=== PATIENT | female | born 1930 | race Caucasian/White ===

== ENCOUNTER 2017-07-12 17:02 | Inpatient (IN) | payer OTHER, BC | END 2017-07-15 15:29 | DRG 536 | LOC: ER 17:02 → EROBS 20:11 → 4N 21:42 | DX: S32.591A Other specified fracture of right pubis, initial encounter for closed fracture (principal); I10 Essential (primary) hypertension; G89.29 Other chronic pain; M54.9 Dorsalgia, unspecified; R54 Age-related physical debility; W06.XXXA Fall from bed, initial encounter; Y93.89 Activity, other specified; Y92.098 Other place in other non-institutional residence as the place of occurrence of the external cause; Z79.899 Other long term (current) drug therapy; Y99.8 Other external cause status ==

== ENCOUNTER 2017-11-28 12:53 | Inpatient (IN) | payer OTHER, BC ==
[~2017-11-28] VITALS: Ht 152.4 cm; Wt 63.5 kg
--- NOTE | ~2017-11-28 | EKG ---
[address] [address] ELECTROCARDIOGRAM REPORT Name: REKHA CHEN LARA Room #: 431-P ADM IN M.R.#: [id number] Admission: 11/28/17 Attend Phys: Guillaume Penaloza MD Discharge: Date of : [birth year] Report #: [id number] THIS REPORT FOR: //name// [facility] ED Test Date: 2017-11-28 Test Time: 13:29:22 Pat Name: REKHA CHEN Department: Room: 431 Gender: F Physiotherapy Practice Manager: : 1930 Requested By: Vickie White Order Number: [id number] MD: Jerry Farley Measurements Intervals [place] Rate: 72 P: 8 [place]: 198 QRS: -18 QRSD: 77 T: 24 QT: 419 QTc: 459 Interpretive Statements Sinus rhythm Left ventricular hypertrophy Inferior infarct, old Baseline wander in lead(s) V5 Compared to ECG 08/10/2017 16:49:45 Left ventricular hypertrophy now present Myocardial infarct finding now present Electronically Signed On 11-28-2017 23:25:22 NEPHROLOGIST by Jerry Farley [email or web address] <ELECTRONICALLY SIGNED> By: Jerry Farley MD 11/28/17 2325 1329 1329 Jerry Farley MD /EPI
--- NOTE | ~2017-11-28 | H ---
[facility] [place] [address] HISTORY AND PHYSICAL Name: REKHA CHEN Room #: 431-P ADM IN M.R.#: [id number] Admission: 11/28/17 Attend Phys: Guillaume Penaloza MD Discharge: Date of : [birth year] Report #: [id number] THIS REPORT FOR: //name// CC: Guillaume Penaloza DATE OF SERVICE: 11/28/2017 CHIEF COMPLAINT: Weakness. HISTORY OF PRESENT ILLNESS: The patient is an 87-year-old female who was brought to the Emergency Room with a few day history of weakness and just generalized symptoms. She has complained of some headache and leg pain along with some crampy pain in the left upper abdomen or chest area. She denied any shortness of breath, direct chest pain or productive cough. She has had no fever or chills. She was hospitalized 4 months ago or longer for a pelvic fracture and then had a brief [facility] stay for rehabilitation. She has been home since and back to her usual self. Her noted that she had been sick on Tuesday with nonspecific symptoms and urged her to come to the hospital, but she declined. PAST MEDICAL HISTORY: Hypertension, pneumonia, chronic low back pain due to lumbar stenosis, pelvic fracture. PAST SURGICAL HISTORY: Cholecystectomy, left total knee replacement. SOCIAL HISTORY: Occasional alcohol use, but no chronic smoking. ALLERGIES: No known drug allergies. MEDICATIONS: Hydrocodone 10 mg, benazepril 20 mg, gabapentin 300 mg t.i.d., fluoxetine 20 mg twice a day and amlodipine 5 mg a day. REVIEW OF SYSTEMS: She denies headache, chest pain, shortness of breath, abdominal pain, nausea, vomiting, diarrhea, constipation. PHYSICAL EXAMINATION: VITAL SIGNS: Temperature 36.4, pulse 74, respirations 18, blood pressure 181/79, O2 sat 91% to 95% on room air. GENERAL: She is awake and alert, in no distress. HEAD AND NECK: Unremarkable. LUNGS: Clear. HEART: Regular. ABDOMEN: Soft, normoactive bowel sounds. EXTREMITIES: No edema. NEUROLOGIC: Motor strength 4/5 throughout. She is alert and oriented. [facility] [address] [place] [address] HISTORY AND PHYSICAL Name: REKHA CHEN [facility] Room #: 431-P [facility] IN M.R.#: [id number] Admission: 11/28/17 Attend Phys: Guillaume Penaloza MD Discharge: Date of : [birth year] Report #: [id number] LABORATORY DATA: Pertinent findings include calcium 11.7, potassium 3.2. ASSESSMENT: 1. Hypercalcemia. 2. Hypokalemia. 3. Generalized weakness due to the above. 4. Hypertension. 5. Chronic lumbar stenosis and chronic back pain. PLAN: The most significant change here is her elevated calcium, which is new since her admission in July. Additional lab studies have been obtained, and I have added IV fluids. She may need a dose of Zometa depending on followup lab studies. This could be the source of her acute symptoms. If ionized calcium and PTH abnormal and we get her improved, then we can continue workup as an outpatient. <ELECTRONICALLY SIGNED> By: Guillaume Penaloza MD 11/29/17 0936 1426 1500 Guillaume Penaloza MD /nt
--- NOTE | ~2017-11-28 | D ---
[facility] [place] [address] DISCHARGE SUMMARY Name: REKHA CHEN Room #: 431-P ADM IN M.R.#: [id number] Admission: 11/28/17 Attend Phys: Guillaume Penaloza MD Discharge: Date of : [birth year] Report #: [id number] THIS REPORT FOR: //name// CC: Guillaume Penaloza FINAL DIAGNOSES: 1. Hypercalcemia. 2. Hypertension. 3. Gait disturbance. HOSPITAL COURSE: The patient was admitted with generalized symptoms of fatigue, weakness, and diffuse pains. Pertinent findings included hypercalcemia with a calcium of 11.5. Repeated studies on several occasions showed levels varying from 9.4 to 11. Corrected for her low albumin, this gave her a calcium of approximately 12 or higher. Ionized calcium was just slightly elevated. PTH was slightly elevated at 75. Thyroid ultrasound was really inconclusive as far as parathyroid adenoma. Other home medications were continued. She continued to complain of diffuse bone pain. On the day of discharge, her calcium was 10.5 and again corrected placed this close to 11.5 to 12. At this point, I elected to give her 1 dose of Zometa 4 mg IV once. I talked to her about the findings and our plan will be to follow up as an outpatient with additional studies. PTH related hormone level will be drawn, but this may be several day result for any occult malignancy. She had multiple x-rays including the spine and chest with old compression fractures, but there was no report or evidence of suspicious bony lesions. A serum protein electrophoresis did not show a protein spike. PHYSICAL EXAMINATION ON THE DAY OF DISCHARGE: GENERAL: She was resting comfortably. VITAL SIGNS: Stable vital signs. LUNGS: Clear. HEART: Regular. ABDOMEN: Soft, normoactive bowel sounds. EXTREMITIES: No edema. DISPOSITION: She will be discharged to home with diet and activity as tolerated, Percocet [address] of hydrocodone. Follow up with me early next week for additional outpatient studies. <ELECTRONICALLY SIGNED> By: Guillaume Penaloza MD 12/02/17 1113 1008 1026 Guillaume Penaloza MD /nt
[~2017-11-28 12:53] MED LIST: ASPIR 8181 MG PO; AUGMENTIN 500-1 EACH PO; BENAZEPRIL HCL20 MG PO; HYDROCODONE-APA1 TA1 PO; IRON325 PO; MAXZIDE-25 MG1 EACH PO; NEURONTIN 300300 M1 PO; NORCO 10-325 T1 EACH PO; NORVASC5 MG PO; PROZAC20 MG PO; TRIAMTERENE/HCT1 CA1 PO; TYLENOL325 MG PO
[2017-11-28 12:58] VITALS: BP 181/79
[2017-11-28 13:38] LABS: ABSOLUTE NEUTROPHILS 7.2 thou/uL (1.4-8.2); BASOPHILS 0.4 % (0.0-2.0); EOSINOPHILS 0.3 % (0.0-3.0); HEMATOCRIT 47.2 % (37.0-47.0); LYMPHOCYTES 14.4 % (24.0-44.0); MCH 35.2 pg (26.0-34.0); MCV 103.4 fL (80.0-100.0); MONOCYTES 6.9 % (1.0-8.0); PLATELET COUNT 251 thou/uL (150-400); RBC 4.56 mil/uL (4.20-5.00); RDW 12.8 % (10.5-14.5); WBC 9.2 thou/uL (4.0-11.0)
[2017-11-28 13:46] LABS: ANION GAP 12 mmol/L (7-16); BUN 21 mg/dL (7-18); CALCIUM 11.7 mg/dL (8.5-10.1); CHLORIDE 102 mmol/L (98-107); CO2 26 mmol/L (21-32); GLUCOSE 146 mg/dL (74-106); POTASSIUM 3.2 mmol/L (3.5-5.1); SODIUM 140 mmol/L (136-145)
[2017-11-28 13:54] LABS: TROPONIN-I < 0.04 ng/mL (<0.06)
[2017-11-28 13:59] LABS: URINE BILIRUBIN NEGATIVE (Negative); URINE BLOOD NEGATIVE (Negative); URINE CLARITY CLEAR; URINE COLOR YELLOW; URINE GLUCOSE-RANDOM* NEGATIVE (Negative); URINE KETONES TRACE (Negative); URINE LEUKOCYTES NEGATIVE (Negative); URINE NITRITE NEGATIVE (Negative); URINE PROTEIN (DIPSTICK) 2+ (Negative); URINE SPECIFIC GRAVITY 1.025 (1.005-1.035); URINE UROBILINOGEN 0.2 E.U./dl (0.2-1.0)
[2017-11-28 14:10] LABS: DIRECT BILIRUBIN 0.2 mg/dL (<0.1-0.3)
[2017-11-28 14:11] LABS: BACTERIA 1-9 Few /HPF (None Seen); CASTS None Seen /LPF (None Seen); CRYSTALS None Seen /LPF (None Seen); SQUAMOUS 0-3 Few /LPF (0-3); URINE RBC 0-2 Rare /HPF (0-2); URINE WBC 6-15 Few /HPF (0-5)
[2017-11-28 15:49] LABS: CALCIUM 11.5 mg/dL (8.5-10.1); CREATININE 1.1 mg/dL (0.6-1.0); PHOSPHORUS 3.1 mg/dL (2.5-4.9)
[2017-11-28 17:20] VITALS: BP 178/75
[2017-11-28 20:51] VITALS: BP 135/53
[2017-11-29 04:49] VITALS: BP 137/72
[2017-11-29 07:06] LABS: HEMATOCRIT 39.1 % (37.0-47.0); MCHC 33.8 g/dL (28.0-37.0); MCV 103.4 fL (80.0-100.0); RBC 3.79 mil/uL (4.20-5.00); RDW 13.1 % (10.5-14.5); WBC 7.6 thou/uL (4.0-11.0)
[2017-11-29 07:07] LABS: HEMOGLOBIN 13.2 gm/dL (12.0-15.0)
[2017-11-29 07:18] LABS: ALBUMIN 3.1 g/dL (3.4-5.0); CALCIUM 10.4 mg/dL (8.5-10.1); POTASSIUM 3.6 mmol/L (3.5-5.1); TOTAL BILIRUBIN 0.7 mg/dL (<0.1-1.0); TOTAL PROTEIN 6.2 g/dL (6.4-8.2)
[2017-11-29 07:30] VITALS: BP 152/70
[2017-11-29 17:00] VITALS: BP 150/69
[2017-11-29 20:00] VITALS: BP 136/60
[2017-11-30 04:22] VITALS: BP 118/63
[2017-11-30 06:50] LABS: ALBUMIN 2.9 g/dL (3.4-5.0); CALCIUM 9.8 mg/dL (8.5-10.1); CREATININE 0.9 mg/dL (0.6-1.0); PHOSPHORUS 2.9 mg/dL (2.5-4.9); POTASSIUM 3.7 mmol/L (3.5-5.1)
[2017-11-30 08:02] VITALS: BP 139/62
[2017-11-30 10:10] LABS: GLOBULIN TOTAL 3.1 g/dL (2.2-3.9); M-SPIKE Not Observed g/dL (Not Observed)
[2017-11-30 14:35] VITALS: BP 145/64
[2017-11-30 20:29] VITALS: BP 159/67
[2017-12-01 03:26] VITALS: BP 104/46
[2017-12-01 06:19] LABS: CALCIUM 9.5 mg/dL (8.5-10.1); CREATININE 0.8 mg/dL (0.6-1.0); PHOSPHORUS 3.1 mg/dL (2.5-4.9); POTASSIUM 3.7 mmol/L (3.5-5.1)
[2017-12-01 08:00] VITALS: BP 159/72
[2017-12-01 16:36] VITALS: BP 149/72
[2017-12-01 19:51] VITALS: BP 157/85
[2017-12-02 05:12] VITALS: BP 150/60
[2017-12-02 05:41] LABS: CALCIUM 10.5 mg/dL (8.5-10.1); CREATININE 0.9 mg/dL (0.6-1.0); POTASSIUM 3.7 mmol/L (3.5-5.1)
[2017-12-02 09:20] VITALS: BP 138/57
[2017-12-02] MEDS ORDERED: PERCOCET PO (10:04)
[2017-12-02 10:58] VITALS: BP 138/57
== END 2017-12-02 15:03 | disposition home health service (06) | DRG 641 ==
LOC: ER 12:53 → 4E 14:07 → EROBS 14:07 → 4E 16:48 → ENTRNSPT 12-02 14:40 → EDTRNSPTSTS 12-02 14:42 → 4E 12-02 15:03
PROVIDERS: Emergency Medicine; Internal Medicine Geriatric Medicine
DX: E83.52 Hypercalcemia (principal); I10 Essential (primary) hypertension; R26.89 Other abnormalities of gait and mobility; G89.29 Other chronic pain; M54.5 Low back pain; E87.6 Hypokalemia; M48.061 Spinal stenosis, lumbar region without neurogenic claudication; Z90.49 Acquired absence of other specified parts of digestive tract; Z87.81 Personal history of (healed) traumatic fracture; Z79.899 Other long term (current) drug therapy; Z87.01 Personal history of pneumonia (recurrent); Z79.82 Long term (current) use of aspirin
CPT/HCPCS: 10183

== ENCOUNTER 2018-05-23 20:26 | Inpatient (IN) | payer OTHER, BC ==
[~2018-05-23] VITALS: Ht 152.4 cm; Wt 57.9 kg
--- NOTE | ~2018-05-23 | EKG ---
[place] [address] [facility] [employer] [place] [address] ELECTROCARDIOGRAM REPORT Name: REKHA CHEN LARA Room #: 208-P ADM IN M.R.#: [id number] Admission: 05/23/18 Attend Phys: Rocío Randle MD Discharge: Date of : [birth year] Report #: [id number] THIS REPORT FOR: //name// [facility] Test Date: 2018-05-25 Test Time: 06:37:21 Pat Name: REKHA CHEN Department: Room: 208 P Gender: F Client Technical Specialist: KRISHAN : 1930 Requested By: Dino Pyle Order Number: [id number] MD: Haider Spicer Measurements Intervals [place] Rate: 65 P: -2 [place]: 184 QRS: -18 QRSD: 81 T: 27 QT: 466 QTc: 485 Interpretive Statements Sinus rhythm Left ventricular hypertrophy Baseline wander in lead(s) II,III,aVF Compared to ECG 11/28/2017 13:29:22 QT interval has shortened Electronically Signed On 05-25-2018 8:46:12 CDT by Haider Spicer [email or web address] <ELECTRONICALLY SIGNED> By: Haider Spicer MD, [facility] 05/25/18 0846 0637 0637 Haider Spicer MD, [facility] /EPI
--- NOTE | ~2018-05-23 | HC ---
[facility] [place] [address] CONSULTATION Name: REKHA CHEN Room #: 208-P ADM IN M.R.#: [id number] Admission: 05/23/18 Attend Phys: Rocío Randle MD Discharge: Date of : [birth year] Report #: [id number] THIS REPORT FOR: //name// CC: Guillaume Randle DATE OF SERVICE: 05/24/2018 TYPE OF REPORT: Cardiology consultation. INDICATION: Chest pain. HISTORY OF PRESENT ILLNESS: This is a pleasant 87-year-old female with a history of hypertension and edema, presenting with chest discomfort. She describes a discomfort on the left sternal area, worse with palpation, deep inspiration and stretching of the arms. This pain has been persistent for the past 3 weeks. She denies any shortness of breath, lightheadedness, palpitations or congestion. There is no history of fever or chills. PAST MEDICAL HISTORY: Hypertension, edema, left total right knee replacement, history of cholecystectomy and pneumonia. ALLERGIES: None. MEDICATIONS: At home include Lotensin 20 mg daily, aspirin once a day, Neurontin and Maxzide one tablet a day. SOCIAL HISTORY: Denies tobacco use. Lives with her . FAMILY HISTORY: Negative for premature CAD. REVIEW OF SYSTEMS: A full 10-point review of systems performed. Only the pertinent positives and negatives are described in the HPI. PHYSICAL EXAMINATION: VITAL SIGNS: Blood pressure is 130/80 and heart rate is 80 beats per minute. GENERAL APPEARANCE: An elderly appearing female, in no acute respiratory distress. HEAD AND EYES: Normocephalic. Sclerae are anicteric. ENT: Oral mucosa moist. NECK: Supple. LUNGS: Clear to auscultation. CARDIAC: Regular rate and rhythm. S1 and S2 positive. ABDOMEN: Soft and nontender. CHEST: Reproducible pain with palpation in the left sternal area. [facility] [address] [place] [address] CONSULTATION Name: REKHA CHEN Room #: 208-P ADM IN .R.#: [id number] Admission: 05/23/18 Attend Phys: Rocío Randle MD Discharge: Date of : [birth year] Report #: [id number] EXTREMITIES: No cyanosis. Trace edema. RADIOLOGICAL DATA: ECG reveals sinus rhythm, nonspecific ST-segment abnormalities and left axis deviation. LABORATORY VALUES: Peak troponin is 0.49 and the second one is 0.26. White count 11.1 and hemoglobin 15.1. Sodium is 135, potassium is 2.8 and creatinine is 1.1. ASSESSMENT AND PLAN: 1. Chest pain syndrome. Her symptoms and findings are consistent with costochondritis or some other musculoskeletal etiology. It is reproducible with palpation over the area as well as stretching of her arms. Recommend treatment with anti-inflammatory agents. 2. Minimal troponin elevation, in the indeterminate range, the significance is unclear. We will need an echo and an ischemic evaluation. 3. Hypertension, continue with medications. 4. Edema, hold diuretic therapy in view of a low potassium. Thank you for allowing me to participate in the care of your patient. <ELECTRONICALLY SIGNED> By: Dino Pyle MD 05/25/18 0823 0923 1041 Dino Pyle MD /nt
--- NOTE | ~2018-05-23 | H ---
[facility] [place] [address] HISTORY AND PHYSICAL Name: REKHA CHEN Room #: 208-P ADM IN M.R.#: [id number] Admission: 05/23/18 Attend Phys: Rocío Randle MD Discharge: Date of : [birth year] Report #: [id number] THIS REPORT FOR: //name// CC: Guillaume Randle DATE OF SERVICE: 05/24/2018 CHIEF COMPLAINT: Chest pain. HISTORY OF PRESENT ILLNESS: The patient is an 87-year-old female who presented to the Emergency Room with a 1-day history of chest pain. She described chronic pain for which she uses hydrocodone, but this generally involves her low back, her left hip but on occasion, she has had pain across her chest. She said the pain hurt when she coughed or took a deep breath. It seemed to intensify yesterday and was more severe than baseline and therefore she came to the Emergency Room last night. Her troponin was slightly elevated and so overnight she has been treated with IV nitroglycerin and heparin infusion. She had a hospitalization, I believe, at [facility] 6 months ago for a similar story, do not recall all the details, but she does not remember any mention of cardiac disease in previous workup. She also was hospitalized here in 2017 with generalized pain and at that point was felt to be related to hypercalcemia and maybe some mild hyperparathyroidism. I believe studies at that time were unremarkable including a protein electrophoresis and x-rays. PAST MEDICAL HISTORY: Hypertension, degenerative lumbar disk disease, insomnia, hypercalcemia, history of herpes zoster with postherpetic neuralgia, carotid stenosis, pelvic fracture in 2017. She had an admission for pneumonia in 2017. PAST SURGICAL HISTORY: Cholecystectomy, left total hip replacement. FAMILY HISTORY: Noncontributory. SOCIAL HISTORY: She is and lives with her . No chronic alcohol or tobacco use. ALLERGIES: None. MEDICATIONS: Hydrocodone 10 mg q.4 hours p.r.n. pain, benazepril 20 mg, gabapentin 300 mg t.i.d., Prozac 20 mg a day and she takes some nutritional supplements. REVIEW OF SYSTEMS: She denies headache, shortness of breath, productive cough, fever, chills, nausea, vomiting, diaphoresis, dysuria, myalgias, arthralgias, syncope, constipation, diarrhea. [facility] [address] [place] [address] HISTORY AND PHYSICAL Name: REKHA CHEN LARA Room #: 208-P [facility] IN .R.#: [id number] Admission: 05/23/18 Attend Phys: Rocío Randle MD Discharge: Date of : [birth year] Report #: [id number] PHYSICAL EXAMINATION: VITAL SIGNS: Temperature 36.4, pulse 80, respiration 18, blood pressure 134/86, O2 sat 91-100% on room air. GENERAL: She is awake and alert, resting in bed in no distress. HEAD AND NECK: Unremarkable. LUNGS: Clear. HEART: Regular. ABDOMEN: Soft, normoactive bowel sounds. EXTREMITIES: No edema. NEUROLOGIC: Motor strength, 4/5 throughout. LABORATORY DATA: Her troponin on admission was 0.4, now 0.2. She is receiving heparin with PTT of 40. CBC, chemistry were unremarkable other than a potassium of 2.8, creatinine 1.1, calcium of 10.2. BNP was 2700. Chest x-ray was negative. ASSESSMENT: 1. Chest pain. 2. Hypertension. 3. Hypokalemia. 4. Hypercalcemia. 5. Degenerative lumbar disk disease. PLAN: At this point, I have asked Cardiology to see her and consider cardiac source of her symptoms. However, if this workup is unremarkable, consider musculoskeletal source. Her calcium is only mildly elevated and this is actually much lower than previous admission, so we will just monitor this for now. I believe she had received a dose of Zometa in the past for hypercalcemia. <ELECTRONICALLY SIGNED> By: Guillaume Penaloza MD 05/25/18 0822 0858 0930 Guillaume Penaloza MD /nt
--- NOTE | ~2018-05-23 | EKG ---
[place] [address] [facility] [place] [address] ELECTROCARDIOGRAM REPORT Name: REKHA CHEN LARA Room #: 208-P ADM IN M.R.#: [id number] Admission: 05/23/18 Attend Phys: Rocío Randle MD Discharge: Date of : [birth year] Report #: [id number] THIS REPORT FOR: //name// [facility] ED Test Date: 2018-05-23 Test Time: 20:26:27 Pat Name: REKHA CHEN Department: Room: Gender: F Spreader Operator Automatic: JAZZY : 1930 Requested By: Juan R Sheehan Order Number: [id number] MD: Haider Spicer Measurements Intervals [place] Rate: 77 P: 22 [place]: 178 QRS: -3 QRSD: 80 T: 59 QT: 446 QTc: 505 Interpretive Statements Sinus rhythm Prolonged QT interval Compared to ECG 11/28/2017 13:29:22 Prolonged QT interval now present Electronically Signed On 05-25-2018 8:33:23 CDT by Haider Spicer [email or web address] <ELECTRONICALLY SIGNED> By: Haider Spicer MD, [facility] 05/25/18 0833 25 25 Haider Spicer MD, [facility] /EPI
--- NOTE | ~2018-05-23 | D ---
[facility] [place] [address] DISCHARGE SUMMARY Name: REKHA CHEN Room #: 208-P [facility] IN M.R.#: [id number] Admission: 05/23/18 Attend Phys: Rocío Randle MD Discharge: 05/26/18 Date of : [birth year] Report #: [id number] THIS REPORT FOR: //name// CC: Guillaume Randle FINAL DIAGNOSES: 1. Costochondritis. 2. Noncardiac chest pain. 3. Hypertension. 4. Edema. 5. 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 HOSPITAL COURSE: The patient was admitted with chest pain. Cardiac enzymes are only just a touch elevated in the indeterminate range. Dr. Pyle saw her in consultation. Echocardiogram was unremarkable. We did not feel that this is an acute cardiac syndrome or evidence of cardiac disease. Therefore, she was treated conservatively. Nonsteroidals seemed to help her left chest wall pain. She had reproducible pain over the left-sided ribs. There was a soft, movable, nontender lipoma in the mid upper left back, which was chronic. CT of the chest was unremarkable. PHYSICAL EXAMINATION: GENERAL: On the day of discharge, she is awake and alert, in no distress. VITAL SIGNS: Stable vital signs, off her benazepril. LUNGS: Clear. HEART: Regular. ABDOMEN: Soft, normoactive bowel sounds. EXTREMITIES: No edema. DISPOSITION: To be discharged to [facility] unit for additional rehabilitation. I will follow her stay there. I have signed her transfer medication list, which will include hydrocodone, ibuprofen and Lidoderm patch for her left chest wall pain. <ELECTRONICALLY SIGNED> By: Guillaume Penaloza MD 06/01/18 1031 1154 1235 Guillaume Penaloza MD /nt
--- NOTE | ~2018-05-23 | 2DMMODE ---
[facility] [address] [place] [address] 2 D/M-MODE ECHOCARDIOGRAM Name: KARYAIDERoseyREKHA LARA Room #: 208-P ADM IN M.R.#: [id number] Admission: 05/23/18 Attend Phys: Sienna Lee Discharge: Date of : [birth year] Date of Service: 05/25/18 1228 Report #: [id number] THIS REPORT FOR: //name// APPROVED REPORT Study performed: 05/25/2018 09:53:04 EXAM: Comprehensive 2D, Doppler, and color-flow Echocardiogram Patient Location: Bedside Room #: 208 Status: routine BSA: 1.53 HR: 74 bpm BP: 91/41 mmHg Other Information Study Quality: Adequate Indications Chest Pain Hypertension/HDD 2D Dimensions RVDd: 30.76 mm LVEF(%): 62.56 (>50%) IVSd: 10.82 (7-11mm) LVOT Diam: 16.55 (18-24mm) LVDd: 29.24 mm PWd: 11.71 (7-11mm) LVDs: 19.74 (25-40mm) Aortic Root: 20.64 mm IVC: 15.00 mm Iniguez's LVEF: 62.56 % Volumes Left Atrial Volume (Systole) Single Plane 4CH: 80.04 mL Single Plane 2CH: 69.63 mL LA ESV Index: 49.00 mL/m2 Aortic Valve AoV Peak Rigoberto.: 1.83 m/s AO Peak Gr.: 13.34 mmHg LVOT Max P.93 mmHg LVOT Max V: 1.58 m/s MALENA Vmax: 1.86 cm2 Mitral Valve E/A Ratio: 0.6 MV Decel. Time: 395.23 ms [facility] [address] [place] [address] 2 D/M-MODE ECHOCARDIOGRAM Name: REKHA CHEN [facility] Room #: 208-P [facility] IN .R.#: [id number] Admission: 05/23/18 Attend Phys: Sienna Lee Discharge: Date of : [birth year] Date of Service: 05/25/18 1228 Report #: [id number] MV E Max Rigoberto.: 0.64 m/s MV A Rigoberto.: 1.06 m/s MV PHT: 114.62 ms IVRT: 110.73 ms Pulmonary Valve PV Peak Rigoberto.: 1.37 m/s PV Peak Gr.: 7.50 mmHg Tricuspid Valve TR Peak Rigoberto.: 2.99 m/s RAP Estimate: 5.00 mmHg TR Peak Gr.: 35.70 mmHg PA Pressure: 41.00 mmHg Left Ventricle Left ventricular cavity is small. There is normal LV segmental wall motion. There is normal left ventricular wall thickness. Left ventricular systolic function is hyperdynamic. Mild-moderate intracavitary gradient (mean 21mmHg), probably related to the hyperdynamic LV function LVEF is 70-75%. Grade I - abnormal relaxation pattern. Right Ventricle The right ventricle is normal size. The right ventricular systolic function is normal. Atria Left atrium is severely dilated. The right atrium size is normal. Aortic Valve Mild aortic valve sclerosis. No aortic regurgitation is present. There is no aortic valvular stenosis. Mitral Valve Moderate mitral annular calcification. Mild mitral regurgitation. No evidence of mitral valve stenosis. Tricuspid Valve The tricuspid valve is normal in structure. Mild tricuspid regurgitation. PAP is estimated at 40 mmHg. Pulmonic Valve Pulmonic valve is not well visualized. Great Vessels The aortic root is normal in size. IVC is normal in size and [facility] [address] [place] [address] 2 D/M-MODE ECHOCARDIOGRAM Name: KARYAIDERoseyREKHA [facility] Room #: 208-P ADM IN M.R.#: [id number] Admission: 05/23/18 Attend Phys: Sienna Lee Discharge: Date of : [birth year] Date of Service: 05/25/18 1228 Report #: [id number] collapses >50% with inspiration. Pericardium There is no pericardial effusion. <Conclusion> Left ventricular systolic function is hyperdynamic. Mild-moderate intracavitary gradient (mean 21mmHg), probably related to the hyperdynamic LV function There is normal LV segmental wall motion. LVEF is 70-75%. Mild diastolic dysfunction Left atrium is severely dilated. Mild aortic valve sclerosis. No aortic regurgitation or stenosis Moderate mitral annular calcification. Mild mitral regurgitation. Mild tricuspid regurgitation. Pulmonary artery pressure estimated at 40 mmHg. There is no pericardial effusion. <ELECTRONICALLY SIGNED> By: Haider Spicer MD, [facility] 05/25/18 1228 1228 1228 Haider Spicer MD, FACC /INF
--- NOTE | ~2018-05-23 | EKG ---
[place] [address] [facility] [employer] [place] [address] ELECTROCARDIOGRAM REPORT Name: REKHA CHEN LARA Room #: 208-P ADM IN M.R.#: [id number] Admission: 05/23/18 Attend Phys: Rocío Randle MD Discharge: Date of : [birth year] Report #: [id number] THIS REPORT FOR: //name// [facility] ED Test Date: 2018-05-23 Test Time: 21:32:34 Pat Name: REKHA CHEN Department: Room: Gender: F Funeral Service Practitioner/Embalmer: JAZZY : 1930 Requested By: Juan R Sheehan Order Number: [id number] MD: Haider Spicer Measurements Intervals [place] Rate: 70 P: 30 [place]: 186 QRS: -20 QRSD: 77 T: 38 QT: 465 QTc: 502 Interpretive Statements Sinus rhythm Borderline left axis deviation Prolonged QT interval Compared to ECG 11/28/2017 13:29:22 No significant change was found Electronically Signed On 05-25-2018 8:34:03 CDT by Haider Spicer [email or web address] <ELECTRONICALLY SIGNED> By: Haider Spicer MD, [facility] 05/25/18 0834 31 31 Haider Spicer MD, [facility] /EPI
[~2018-05-23 20:26] MED LIST changes: +PERCOCET PO
[2018-05-23 20:27] VITALS: BP 133/65
[2018-05-23 20:51] LABS: ABSOLUTE NEUTROPHILS 7.3 thou/uL (1.4-8.2); BASOPHILS 0.7 % (0.0-2.0); EOSINOPHILS 0.1 % (0.0-3.0); HEMOGLOBIN 15.1 gm/dL (12.0-15.0); MCH 35.3 pg (26.0-34.0); MCHC 35.2 g/dL (28.0-37.0); MCV 100.2 fL (80.0-100.0); MONOCYTES 7.9 % (1.0-8.0); PLATELET COUNT 222 thou/uL (150-400); POLYS 65.3 % (36.0-66.0); RBC 4.29 mil/uL (4.20-5.00); RDW 12.2 % (10.5-14.5); WBC 11.1 thou/uL (4.0-11.0)
[2018-05-23 20:59] LABS: CALCIUM 10.2 mg/dL (8.5-10.1); CREATININE 1.1 mg/dL (0.6-1.0)
[2018-05-23 21:01] LABS: POTASSIUM 2.8 mmol/L (3.5-5.1)
[2018-05-23 21:07] LABS: ALBUMIN 3.8 g/dL (3.4-5.0); TOTAL BILIRUBIN 1.3 mg/dL (<0.1-1.0); TROPONIN-I 0.49 ng/mL (<0.06)
[2018-05-23] MEDS ORDERED: HYDROCODONE-ACE15 ML PO (22:23)
[2018-05-23] MEDS ORDERED: IRON325 PO (22:24)
[2018-05-23] MEDS ORDERED: MAXZIDE-25 MG1 EACH PO (22:25)
[2018-05-23] MEDS ORDERED: TRIAMCINOLONE 080 G3 TOP (22:26)
[2018-05-23] MEDS ORDERED: [UNRECOGNIZED DRUG - OTHER] PO (22:28)
[2018-05-23] MEDS ORDERED: [UNRECOGNIZED DRUG - OTHER] PO (22:28)
[2018-05-23] MEDS ORDERED: [UNRECOGNIZED DRUG - OTHER] PO (22:29)
[2018-05-23] MEDS ORDERED: TURMERIC500 M2 PO (22:30)
[2018-05-23] MEDS ORDERED: VITAMINC500 PO (22:31)
[2018-05-23] MEDS ORDERED: MELATIN3 MG PO (22:31)
[2018-05-23] MEDS ORDERED: VITAMIN D3400 UNIT PO (22:31)
[2018-05-23 22:35] VITALS: BP 141/61
[2018-05-23 23:03] LABS: APTT 26.6 Seconds (24.5-32.8); INR 1.4
[2018-05-23 23:08] VITALS: BP 146/68
[2018-05-24 04:52] VITALS: BP 141/61
[2018-05-24 07:13] VITALS: BP 134/86
[2018-05-24 11:08] VITALS: BP 139/73
[2018-05-24 16:08] VITALS: BP 123/67
[2018-05-24 21:23] VITALS: BP 97/39
[2018-05-25 00:13] VITALS: BP 90/43
[2018-05-25 05:53] VITALS: BP 91/41
[2018-05-25 08:11] VITALS: BP 99/56
[2018-05-25 11:07] VITALS: BP 100/51
[2018-05-25 16:11] VITALS: BP 88/47
[2018-05-25 19:38] VITALS: BP 103/54
[2018-05-26 04:25] VITALS: BP 109/50
[2018-05-26 08:28] VITALS: BP 116/50
[2018-05-26] MEDS ORDERED: IBUPROFEN 200200 M1 PO (11:43)
[2018-05-26] MEDS ORDERED: NORCO 10-325 T1 EACH PO (11:44)
[2018-05-26] MEDS ORDERED: LIDODERM1 EACH TRANSDERM (11:45)
[2018-05-26 12:30] VITALS: BP 129/64
== END 2018-05-26 15:35 | DRG 206 ==
LOC: ER 20:26 → 2N 21:29 → EROBS 21:29 → 2N 22:47
PROVIDERS: Emergency Medicine
DX: M94.0 Chondrocostal junction syndrome [Tietze] (principal); I10 Essential (primary) hypertension; Z96.653 Presence of artificial knee joint, bilateral; D17.79 Benign lipomatous neoplasm of other sites; G47.00 Insomnia, unspecified; Z96.642 Presence of left artificial hip joint; E87.6 Hypokalemia; E83.52 Hypercalcemia; M51.36 Other intervertebral disc degeneration, lumbar region; Z90.49 Acquired absence of other specified parts of digestive tract; Z87.81 Personal history of (healed) traumatic fracture; Z79.899 Other long term (current) drug therapy
CPT/HCPCS: 10081

== ENCOUNTER 2019-01-25 15:51 | Inpatient (IN) | payer OTHER, BC ==
[~2019-01-25] VITALS: Ht 152.4 cm; Wt 53.9 kg
[~2019-01-25 15:51] MED LIST changes: +HYDROCODONE-ACE15 ML PO; +IBUPROFEN 200200 M1 PO; +LIDODERM1 EACH TRANSDERM; +MELATIN3 MG PO; +TRIAMCINOLONE 080 G3 TOP; +TURMERIC500 M2 PO; +VITAMIN D3400 UNIT PO; +VITAMINC500 PO; +[UNRECOGNIZED DRUG - OTHER] PO; +[UNRECOGNIZED DRUG - OTHER] PO; +[UNRECOGNIZED DRUG - OTHER] PO
[2019-01-25 15:56] VITALS: BP 167/76
[2019-01-25 16:12] LABS: ABSOLUTE NEUTROPHILS 3.8 thou/uL (1.4-8.2); BASOPHILS 0.9 % (0.0-2.0); EOSINOPHILS 1.2 % (0.0-3.0); HEMATOCRIT 42.8 % (37.0-47.0); HEMOGLOBIN 14.7 gm/dL (12.0-15.0); LYMPHOCYTES 39.1 % (24.0-44.0); MCH 35.3 pg (26.0-34.0); MCHC 34.3 g/dL (28.0-37.0); MCV 102.9 fL (80.0-100.0); MONOCYTES 11.1 % (1.0-8.0); PLATELET COUNT 197 thou/uL (150-400); POLYS 47.7 % (36.0-66.0); RBC 4.16 mil/uL (4.20-5.00); RDW 12.4 % (10.5-14.5)
[2019-01-25 16:20] LABS: ANION GAP 9 mmol/L (7-16); BUN 39 mg/dL (7-18); CHLORIDE 99 mmol/L (98-107); CO2 30 mmol/L (21-32); GLUCOSE 110 mg/dL (74-106); POTASSIUM 3.2 mmol/L (3.5-5.1); SODIUM 138 mmol/L (136-145)
--- NOTE | 2019-01-25 16:22 | EKG ---
[place] [address] [place] [address] ELECTROCARDIOGRAM REPORT Name: REKHA CHEN LARA Room #: [facility]..#: [id number] ������������������ Admission: ������������������ Attend Phys: Discharge: ������������������ Date of : [birth year] Report #: [id number] ����������������������������������������������������������������� [id number] THIS REPORT FOR: //name// [facility] ED Test Date: 2019-01-25 Test Time: 15:54:35 Pat Name: REKHA CHEN Department: Room: Gender: F Electronic Operator: : 1930 Requested By: Benny Walker Order Number: [id number] MD: Haider Spicer Measurements Intervals [place] Rate: 65 P: 4 [place]: 178 QRS: -13 QRSD: 89 T: 12 QT: 433 QTc: 451 Interpretive Statements Sinus rhythm Nonspecific ST segment abnormality Compared to ECG 05/25/2018 06:37:21 No significant changes Electronically Signed On 01-25-2019 16:22:32 DROP SHIPMENT CLERK by Haider Spicer [email or web address] ��������������������������������������������� <ELECTRONICALLY SIGNED> ���������������������������������������� By: Haider Spicer MD, [facility] ��������������������������������������������� 01/25/19 1622 1554 1554 Haider Spicer MD, FACC /EPI
[2019-01-25 16:29] LABS: TROPONIN-I <0.06 ng/mL (<0.06)
[2019-01-25 17:42] LABS: BE(vivo) 3.2 mmol/L (-2 to +3); HCO3 27.3 mmol/L (22.0-26.0); PCO2 39.9 mmHg (35.0-45.0); PO2 73.7 mmHg (80.0-100.0); pH 7.453 (7.360-7.450); sO2 95.5 % (92.0-98.0)
[2019-01-25 17:52] LABS: APTT 24.9 Seconds (24.5-32.8); INR 1.3
[2019-01-25 20:04] LABS: URINE BILIRUBIN NEGATIVE (Negative); URINE BLOOD NEGATIVE (Negative); URINE CLARITY CLEAR; URINE COLOR YELLOW; URINE GLUCOSE-RANDOM* NEGATIVE (Negative); URINE KETONES NEGATIVE (Negative); URINE LEUKOCYTES NEGATIVE (Negative); URINE NITRITE NEGATIVE (Negative); URINE PROTEIN (DIPSTICK) TRACE (Negative); URINE SPECIFIC GRAVITY <= 1.005 (1.005-1.035); URINE UROBILINOGEN 0.2 E.U./dl (0.2-1.0)
[2019-01-25 20:35] VITALS: BP 174/62
[2019-01-25 21:10] VITALS: BP 155/56
[2019-01-25 22:25] VITALS: BP 187/62
[2019-01-26] VITALS (7 sets, daily range): BP systolic 135–160; BP diastolic 53–74
--- NOTE | 2019-01-26 00:01 | NUR ---
PT ADMITTED FROM ED WITH CHEST PAIN.ARRIVED TO UNIT VIA CART ACCOMPANIED BY ED STAFF.PT A/OX4 WITH FORGETFULNESS.VERY NUIQSUT.PT DENIES CHEST PAIN BUT DO C/O GENERALIZED PAIN TO BACK,LEGS THAT SHE REQUEST HER USUAL DOSE OF HYDROCODONE.SHE STATES SHE TAKES HYDROCODONE 4X A DAY.BLOOD PRESSURE ELEVATED,IN 180S SYSTOLLICALLY,SAMPLE BUILDER NOTIFIED ORDERED PAIN MEDS AND HYDRALAZINE IV PUSH.ADMISSION ASSESMENT COMPLETED DOCUMENTED.PT UNABLE TO REMEMBER SOME OF HER HOME MEDS [facility] HER GIVES HER MEDS.PT UP WITH ASSIST TO [facility],UNSTEADY ON HER FEET.PT DENIES ANY OTHER NEEDS AT THIS TIME.WILL CONT TO MONITOR PER POC.
--- NOTE | 2019-01-26 10:16 | NUR ---
PT STATUS - PT STATING THAT SHE HAS 8/10 SIDE PAIN THAT SHE TAKE HYDRCODONE 10/325 Q 4HR AT HOME. SHE IS ON 5/325 Q 6 HERE AND STATES IT IS NOT HELPING. PT STATES THAT IS WE CANNOT CONTROL HER PAIN SHE IS LEAVING. INCREASED PAIN WITH PALPATION TO LEFT STERNAL BOARDER, NO BRUISING NOTED, LUNG AND HEART SOUNDS WNL. DR LORENZO OKAYED INCREASE IN PAIN MED TO 10/325 Q 4. WILL MONITOR.
--- NOTE | 2019-01-26 15:31 | H ---
[facility] [place] [address] HISTORY AND PHYSICAL Name: REKHA CHEN Room #: 203-P ADM IN M.R.#: [id number] Admission: 01/25/19 ������������������ Attend Phys: Guillaume Penaloza MD Discharge: ������������������ Date of : [birth year] Report #: [id number] THIS REPORT FOR: //name// CC: Guillaume SADLER physician/PCP DATE OF SERVICE: 01/25/2019 CHIEF COMPLAINT: Left chest pain. HISTORY OF PRESENT ILLNESS: The patient is an 88-year-old female who came to the Emergency Room with constant left chest pain. Her says she has been lying in bed for several days, complaining of pain in her left lower ribs. She says it is a constant pain, does not have any symptoms with exertion or movement. She does not say that kneel seem to exacerbate it. She does not have any shortness of breath associated with it. This has been worked up extensively in the past, both here and at [facility] previously. No definitive explanation or diagnosis has been found. She has had several CTs with no rib fracture or lesion. She has had cardiac workup in the past as well. PAST MEDICAL HISTORY: Hypertension, history of hip fracture, history of pelvic fracture, history of pneumonia, remote coronary artery disease, remote carotid stenosis, history of postherpetic neuralgia, depression, several admissions for left chest pain. FAMILY HISTORY: Unknown. PAST SURGICAL HISTORY: Unknown. SOCIAL HISTORY: Remote smoker, none currently. She is and lives with her . No chronic alcohol. ALLERGIES: None. MEDICATIONS: Melatonin, gabapentin, aspirin, Prozac, hydrocodone, ibuprofen. REVIEW OF SYSTEMS: Denies headache, shortness of breath, abdominal pain, nausea, vomiting, diarrhea, constipation, dysuria, syncope. OBJECTIVE: VITAL SIGNS: Temperature 36.8, pulse 78, respirations 19, blood pressure 145/74, O2 sat 94% on room air. GENERAL: She is awake and alert, in no distress. LUNGS: Clear. HEART: Regular. ABDOMEN: Soft, normoactive bowel sounds. [facility] [address] [place] [address] HISTORY AND PHYSICAL Name: REKHA CHEN [facility] Room #: 203-P [facility] IN M.R.#: [id number] Admission: 01/25/19 ������������������ Attend Phys: Guillaume Penaloza MD Discharge: ������������������ Date of : [birth year] Report #: [id number] EXTREMITIES: No edema. NEUROLOGIC: Motor strength 3/5 throughout. She is oriented to place, recognizes me, appears at her baseline. CHEST: She has some slight tenderness to palpation at the left lower ribs and left upper quadrant. LABORATORY DATA: Reviewed chest x-ray and CT head. ASSESSMENT: 1. Left chest wall pain. 2. Hypercalcemia. 3. Hypertension. 4. Possible transient ischemic attack, resolved. PLAN: At this point, we will focus on workup of the left chest wall pain with a CT of the chest and evaluation of her hypercalcemia, I believe last year, she had similar findings lab coto and she may have some borderline primary hyperparathyroidism. Given her advanced age and debility, I think just symptomatic treatment would be appropriate at this point. ��������������������������������������������� <ELECTRONICALLY SIGNED> ���������������������������������������� By: Guillaume Penaloza MD ��������������������������������������������� 01/26/19 1531 1200 1223 Guillaume Penaloza MD /nt
--- NOTE | 2019-01-26 15:43 | NUR ---
Cm met with the pt and spouse at bedside to assess for dc planning needs. The pt lives with spouse in their own home. Pt's spouse drives and does errands. The pt has a quad cane and a rwalker for home use. She and spouse report that she spends a lot of time in bed and wears a depends. They have had hh in the past thru [facility] and would be open to using them again. [facility] alerted of possible weekend dc and they can accept. Weekend staff will need to call the oncall with [facility] [phone] and fax orders to [phone].
[2019-01-27 04:59] LABS: CALCIUM 9.7 mg/dL (8.5-10.1); CREATININE 0.8 mg/dL (0.6-1.0); POTASSIUM 3.4 mmol/L (3.5-5.1)
[2019-01-27 05:19] VITALS: BP 138/75
[2019-01-27 07:20] VITALS: BP 138/44
--- NOTE | 2019-01-27 07:38 | NUR ---
ASSUMED PT CARE AT 1900 WITH NO SIGN OF DISTRESS NOTED IN PT. PT IS ALERT AND SITTING IN CHAIR, SCHEDULED MEDS ADMINISTERED TO PT, PT TOLERATED PO INTAKE, VITAL SIGNS STABLE. PT WEARS CPAP THROUGHOUT THE NIGHT FOR SLEEP, DENIES ANY FURTHER NEEDS AT THIS TIME.
[2019-01-27 12:26] VITALS: BP 143/53
[2019-01-27 16:50] VITALS: BP 153/62
[2019-01-27 20:44] VITALS: BP 171/68
--- NOTE | 2019-01-28 04:10 | NUR ---
PT CALLS OUT APPROPRIATLY FOR ASSISTANCE, RESTING QUIETLY IN ROOM, VSS, PRN PAIN MED GIVEN AT HS FOR C/O BACK PAIN, WILL CON'T TO MONITOR PER PPOC.
[2019-01-28 04:51] LABS: CALCIUM 9.7 mg/dL (8.5-10.1); CREATININE 0.8 mg/dL (0.6-1.0); POTASSIUM 3.9 mmol/L (3.5-5.1)
[2019-01-28 05:31] VITALS: BP 139/68
[2019-01-28 08:08] VITALS: BP 176/75
[2019-01-28 11:51] VITALS: BP 127/60
[2019-01-28 15:37] VITALS: BP 144/51
--- NOTE | 2019-01-28 17:29 | NUR ---
ASSESSMENT DOCUMENTED. PT ALERT AND ORIENTED. RECEIVED PRN PAIN MED FOR LEFT SIDE PAIN WITH PARTIAL RELIEF. NO RESPIRATORY OR CARDIAC DISTRESS NOTED. VSS. FALL PRECAUTION ENFORCED. WILL CONTINUE TO MONITOR.
[2019-01-28 19:49] VITALS: BP 101/40
--- NOTE | 2019-01-29 03:13 | NUR ---
ASSESSMENT DOCUMENTED.PT BEEN RESTING IN NO ACUTE DISTRESS.VSS.SR ON MONITOR.PAIN MEDS GIVEN FOR LEFT SIDE PAIN W/PARTIAL RELIEF.PT DENIES CHEST PAIN.NO OTHER NEEDS REPORTED.POSSIBLE DISCHARGE TO HOME TODAY.WILL CONT TO MONITOR PER POC.
[2019-01-29 04:36] VITALS: BP 150/85
[2019-01-29 07:27] VITALS: BP 133/68
[2019-01-29 10:43] VITALS: BP 147/82
[2019-01-29] MEDS ORDERED: MOBIC7.5 M1 PO (12:01)
[2019-01-29] MEDS ORDERED: COZAAR100 MG PO (12:01)
[2019-01-29] MEDS ORDERED: NORCO 7.5-3251 EACH PO (12:02)
--- NOTE | 2019-01-29 14:18 | NUR ---
PT. DISCHARGING TODAY TO HOME WITH [facility]. SPOKE WITH SANIA IN ADM. SHE RECEIVED DC ORDERS AND WILL NOTIFY PT. OF TIME OF VISITS.
--- NOTE | 2019-01-29 15:20 | NUR ---
ASSESSMENT DOCUMENTED. PT ALERT AND ORIENTED WITH FORGETFULLNESS. RECEIVED PRN PAIN MED WITH PARTIAL RELIEF. SEEN BY DR. LORENZO. ORDERS GIVEN TO DISCHARGE PT TO HOME. DISCHARGE INSTRUCTIONS GIVEN TO PT AND THE HUSBANDD. PATIENT VERBERLISED UNDERSTANDING.
--- NOTE | 2019-01-30 10:02 | D ---
[facility] [place] [address] DISCHARGE SUMMARY Name: REKHA CHEN Room #: 203-P [facility] IN M.R.#: [id number] Admission: 01/25/19 ������������������ Attend Phys: Guillaume Penaloza MD Discharge: 01/29/19 ������������������ Date of : [birth year] Report #: [id number] THIS REPORT FOR: //name// CC: Guillaume Penaloza [facility] physician/PCP DATE OF SERVICE: 01/29/2019 FINAL DIAGNOSES: 1. Left-sided chest wall pain. 2. Chronic thoracic vertebral compression fractures. 3. Hypertension. 4. Senile debility. HOSPITAL COURSE: The patient was admitted with left-sided chest wall pain. Cardiac enzymes were negative. Chest x-ray did not reveal an infiltrate through ER. CT of the chest showed no mass or left rib fractures. She does have 3 chronic vertebral compression fractures of the thoracic spine. Her hypercalcemia resolved with IV fluids. Her serum ionized calcium was only slightly elevated at this point, so no other interventions were entertained at this point and had been worked up and treated a year ago. She worked with physical therapy and pain was slightly better. She was walking 80-100 feet. I spoke to her at the bedside on the day of discharge about discharge plans and they both felt comfortable returning home with home health. I encouraged her to increase her activity at home. We discussed resuming her depression medication, but at this time, she wants to wait and see. PHYSICAL EXAMINATION: GENERAL: On the day of discharge, she was awake and alert, resting in bed. VITAL SIGNS: Stable. LUNGS: Clear. HEART: Regular. ABDOMEN: Soft, normoactive bowel sounds. EXTREMITIES: No edema. DISPOSITION: She is discharged to home with diet and activity as tolerated, home health. Follow up with me in a week or 2. She will continue hydrocodone 7.5 mg 4 times a day as needed for pain along with meloxicam 7.5 mg for 1 week. She wants to discontinue Prozac for now. I will discontinue the gabapentin, and we will use losartan 100 mg for blood pressure. ��������������������������������������������� <ELECTRONICALLY SIGNED> ���������������������������������������� By: Guillaume Penaloza MD ��������������������������������������������� 01/30/19 1002 1235 1918 Guillaume Penaloza MD /nt
== END 2019-01-29 15:26 | disposition home health service (06) | DRG 551 ==
LOC: ER 15:51 → EROBS 20:25 → 2N 20:25 → ENTRNSPT 01-29 15:15 → EDTRNSPTSTS 01-29 15:19 → 2N 01-29 15:26
PROVIDERS: Emergency Medicine; Internal Medicine; ADMIT Internal Medicine Geriatric Medicine
DX: M54.14 Radiculopathy, thoracic region (principal); E43 Unspecified severe protein-calorie malnutrition; M48.54XA Collapsed vertebra, not elsewhere classified, thoracic region, initial encounter for fracture; M94.0 Chondrocostal junction syndrome [Tietze]; R54 Age-related physical debility; G72.9 Myopathy, unspecified; I10 Essential (primary) hypertension; I25.10 Atherosclerotic heart disease of native coronary artery without angina pectoris; F32.9 Major depressive disorder, single episode, unspecified; E83.52 Hypercalcemia; E87.6 Hypokalemia; G89.29 Other chronic pain; M54.9 Dorsalgia, unspecified; Z90.49 Acquired absence of other specified parts of digestive tract; Z68.23 Body mass index [BMI] 23.0-23.9, adult; Z87.81 Personal history of (healed) traumatic fracture; Z87.01 Personal history of pneumonia (recurrent); Z79.82 Long term (current) use of aspirin; Z79.899 Other long term (current) drug therapy
CPT/HCPCS: 10081

== ENCOUNTER 2019-05-15 15:52 | Emergency (ER) | payer OTHER, BC ==
[~2019-05-15] VITALS: Ht 152.4 cm; Wt 49.9 kg
[~2019-05-15 15:52] MED LIST changes: +COZAAR100 MG PO; +MOBIC7.5 M1 PO; +NORCO 7.5-3251 EACH PO
[2019-05-15] MEDS ORDERED: NAPROSYN500 MG PO (16:01)
[2019-05-15 17:20] VITALS: BP 182/88
== END 2019-05-15 17:20 | disposition home or self-care (01) ==
LOC: ER 15:52
DX: S40.022A Contusion of left upper arm, initial encounter (principal); G89.29 Other chronic pain; M54.5 Low back pain; I10 Essential (primary) hypertension; Z96.652 Presence of left artificial knee joint; Z90.49 Acquired absence of other specified parts of digestive tract; Z87.01 Personal history of pneumonia (recurrent); X58.XXXA Exposure to other specified factors, initial encounter; Y93.89 Activity, other specified; Y92.89 Other specified places as the place of occurrence of the external cause; Y99.8 Other external cause status